=== PATIENT | female | born 1985 | race African-American/Black ===

== ENCOUNTER 2016-08-27 23:09 | Emergency (ER) | payer SELFPAY ==
[~2016-08-27] VITALS: Ht 162.6 cm; Wt 94.3 kg
[~2016-08-27 23:09] MED LIST: AZIT500T PO; METR500T PO
[2016-08-27 23:20] VITALS: BP 155/84
[2016-08-28] MEDS ORDERED: PRED50TA PO (00:10)
[2016-08-28] MEDS ORDERED: PROAIR HFA8.5 GM INH (00:10)
[2016-08-28] MEDS ORDERED: D-ME118S2 PO (00:10)
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
== END 2016-08-28 00:20 | disposition home or self-care (01) ==
LOC: ER 23:09
DX: J06.9 Acute upper respiratory infection, unspecified (principal); R07.89 Other chest pain; Z86.711 Personal history of pulmonary embolism
CPT/HCPCS: 99283

== ENCOUNTER 2016-09-03 16:56 | Emergency (ER) | payer SELFPAY ==
[~2016-09-03] VITALS: Ht 162.6 cm; Wt 93.4 kg
[~2016-09-03 16:56] MED LIST changes: +D-ME118S2 PO; +PRED50TA PO; +PROAIR HFA8.5 GM INH
[2016-09-03 17:00] VITALS: BP 118/82
[2016-09-03] MEDS ORDERED: ALBUTEROL SULFATE 2.5 MG/3 ML NEBU. NEB ONE (17:15)
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
[2016-09-03] MEDS ORDERED: BENZ200C39 PO (18:25)
[2016-09-03] MEDS ORDERED: PRED20TA PO (18:25)
--- NOTE | 2016-09-04 07:54 | RAD ---
Indication chest pain. PA and lateral views of the chest were obtained and are compared to an examination 05/07/2007. The heart, pulmonary vessels and mediastinum appear normal. The lungs are clear. There is no pleural fluid or pneumothorax. IMPRESSION: No acute or focal process is seen in the chest
== END 2016-09-03 18:32 | disposition home or self-care (01) ==
LOC: ER 16:56
DX: J40 Bronchitis, not specified as acute or chronic (principal); R50.9 Fever, unspecified
CPT/HCPCS: 71020; 81025; 94250; 94640; 99284-25

== ENCOUNTER 2017-03-10 00:33 | Emergency (ER) | payer SELFPAY ==
[~2017-03-10] VITALS: Ht 162.6 cm; Wt 93.4 kg
[~2017-03-10 00:33] MED LIST changes: +BENZ200C47 PO; +PRED20TA PO
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
[2017-03-10 02:08] LABS: BASO # 0.1 x10^3/uL (0.0-0.2); BASO % 1 % (0-3); EOS % 2 % (0-3); LYMPH # 2.4 x10^3/uL (1.0-4.8); LYMPH % 27 % (24-48); MEAN CORPUSCULAR HEMOGLOBIN 31 pg (25-35); MEAN CORPUSCULAR HGB CONC 33 g/dL (31-37); MEAN CORPUSCULAR VOLUME 92 fL (79-100); MONO % 6 % (0-9); NEUT % 64 % (31-73); PLATELET COUNT 231 x10^3/uL (140-400); RED CELL DISTRIBUTION WIDTH 13.2 % (11.5-14.5); WHITE BLOOD COUNT 8.7 x10^3/uL (4.0-11.0)
[2017-03-10 02:09] LABS: BILIRUBIN,URINE NEGATIVE (NEG); GLUCOSE,URINE NEGATIVE (NEG); NITRITE,URINE NEGATIVE (NEG); PH,URINE 6.5; PROTEIN,URINE NEGATIVE (NEG-TRACE)
[2017-03-10 02:16] LABS: BARBITURATES NEG (NEG); BENZODIAZEPINES NEG (NEG); CANNABINOIDS NEG (NEG); COCAINE NEG (NEG); METHADONE NEG (NEG); OPIATES NEG (NEG); PHENCYCLIDINE NEG (NEG)
[2017-03-10 02:27] LABS: BACTERIA,URINE MODERATE /HPF (0-FEW); RBC,URINE >40 /HPF (0-2); SQUAMOUS EPITHELIAL CELL,UR FEW /LPF; WBC,URINE TNTC /HPF (0-4)
[2017-03-10 02:36] LABS: CALCIUM 9.2 mg/dL (8.5-10.1); CREATININE 1.1 mg/dL (0.6-1.0); GFR 70.6; POTASSIUM 3.8 mmol/L (3.5-5.1)
[2017-03-10 02:41] LABS: ALBUMIN 3.8 g/dL (3.4-5.0); ALBUMIN/GLOBULIN RATIO 0.9 (1.0-1.7); TOTAL BILIRUBIN 0.4 mg/dL (0.2-1.0)
[2017-03-10] MEDS ORDERED: SULF1TAB24 PO (03:22)
[2017-03-10 03:42] VITALS: BP 120/67
--- NOTE | 2017-03-10 06:22 | EKG ---
[facility] [address] [place] [address] Test Date: 2017-03-10 Test Time: 01:46:40 Pat Name: YUDITH BELLE Department: Room: Gender: F [employer]: : 1985 Requested By: JOO WARE Order Number: [id number] Reading MD: Measurements Intervals [place] Rate: 74 P: LA: QRS: 66 QRSD: 70 T: 48 QT: 356 QTc: 396 Interpretive Statements IRREGULAR RHYTHM, NO P-WAVE FOUND OTHERWISE NORMAL ECG RI6.01 Unconfirmed report No previous ECG available for comparison
--- NOTE | 2017-03-10 07:27 | RAD ---
EXAM: CHEST 1 VIEW History: Weakness COMPARISON: 09/03/2016 TECHNIQUE: Single portable radiograph of the chest FINDINGS: The cardiac silhouette is unremarkable. The lungs are clear bilaterally. The costophrenic sulci are clear and well demarcated. IMPRESSION: No radiographic evidence of an acute cardiopulmonary process.
== END 2017-03-10 03:43 | disposition home or self-care (01) ==
LOC: ER 00:33
DX: R53.1 Weakness (principal); N39.0 Urinary tract infection, site not specified; R42 Dizziness and giddiness; Z86.711 Personal history of pulmonary embolism
CPT/HCPCS: 36415; 71010; 80053; 80307; 81001; 81025; 82962; 83690; 85025; 87086; 93005; 99285; G0480; G0479

== ENCOUNTER 2017-06-30 00:17 | Emergency (ER) | payer SELFPAY ==
[2017-06-30] MEDS: diphenhydrAMINE HCL 25 MG CAPSULE PO (01:52)
[2017-06-30] MEDS: HYDROcodone/APAP 5/325MG 1 TAB TABLET PO (01:52)
[2017-06-30] MEDS: IBUPROFEN 800 MG TABLET. PO (01:52)
== END 2017-06-30 02:57 | disposition home or self-care (01) ==
LOC: ER 00:17
DX: L25.9 Unspecified contact dermatitis, unspecified cause (principal); R00.0 Tachycardia, unspecified; Z86.711 Personal history of pulmonary embolism
CPT/HCPCS: 99284; Q0163

== ENCOUNTER 2020-08-26 14:37 | Emergency (ER) | payer SELFPAY ==
[~2020-08-26] VITALS: Ht 160 cm; Wt 107.4 kg
[~2020-08-26 14:37] MED LIST changes: +ALBU2.5V8 INH; -D-ME118S2 PO; -PROAIR HFA8.5 GM INH; +PROM118S10 PO; +SULF1TAB24 PO
[2020-08-26] MEDS ORDERED: HYDROcodone/APAP 5/325MG 1 TAB TABLET PO ONE (15:15)
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
[2020-08-26] MEDS ORDERED: HYDR-2761 PO (15:49)
[2020-08-26 16:25] VITALS: BP 133/74
--- NOTE | 2020-09-05 07:42 | EKG ---
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
== END 2020-08-26 16:25 | disposition home or self-care (01) ==
LOC: ER 14:37
DX: G89.11 Acute pain due to trauma (principal); R07.89 Other chest pain; Z98.51 Tubal ligation status; Z86.711 Personal history of pulmonary embolism; Z98.890 Other specified postprocedural states; Y08.89XA Assault by other specified means, initial encounter; Y93.89 Activity, other specified; Y92.89 Other specified places as the place of occurrence of the external cause; Y99.8 Other external cause status
CPT/HCPCS: 71046; 93005; 99283

== ENCOUNTER 2021-03-12 17:15 | Emergency (ER) | payer SELFPAY ==
[~2021-03-12] VITALS: Ht 160 cm; Wt 104.0 kg
[~2021-03-12 17:15] MED LIST changes: +HYDR-2761 PO
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
[2021-03-12 20:20] VITALS: BP 113/81
[2021-03-12 20:27] LABS: INFLUENZA A PATIENT NEGATIVE (NEGATIVE); INFLUENZA B PATIENT NEGATIVE (NEGATIVE)
--- NOTE | 2021-03-12 20:41 | RAD ---
Study: XR CHEST 1V Indication: Cough. Chest pain. Comparison: 08/26/2020 Findings: The cardiomediastinal silhouette and alecia are within normal limits considering AP technique and low l brittney volumes. No localized airspace opacity, pleural effusion or pneumothorax. Impression: No acute radiographic abnormality of the chest. Electronically signed by: CRUZITO GIL MD (03/12/2021 8:38 PM) [facility]
--- NOTE | 2021-03-13 06:34 | EKG ---
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
--- NOTE | 2021-03-13 11:18 | NUR ---
IP: Patient notified of negative COVID19 test result. Verbalized understanding.
== END 2021-03-12 21:30 | disposition home or self-care (01) ==
LOC: ER 17:15
DX: R05 Cough (principal); Z20.822 Contact with and (suspected) exposure to COVID-19; R09.81 Nasal congestion; R51.9 Headache, unspecified; R07.89 Other chest pain
CPT/HCPCS: 71045; 87426; 87804; 93005; 99285; U0003; U0005